=== PATIENT | female | born 1995 | race Caucasian/White ===

== ENCOUNTER → 2020-06-05 | Day surgery (SDC) | payer OTHER ==
[~2020-06-05] VITALS: Ht 162.6 cm; Wt 81.6 kg
[~2020-06-05] MED LIST: NORCO 5-325 TA1 EACH PO; ONDANSETRON ODT4 MG SL; ONDANSETRON ODT8 MG PO; PEPCID AC20 MG PO
[2020-06-05 07:29] LABS: HCG (URINE) SCREEN NEGATIVE (NEGATIVE)
[2020-06-05 07:58] LABS: HCT 39.6 % (37.0-47.0); HGB 13.5 g/dl (12.5-16.0); MCHC 34.1 g/dL (32.0-36.0); RBC 4.5 M/uL (4.20-5.40); RDW 12.5 % (11.5-14.0); WBC 6.9 K/uL (4.0-10.5)
[2020-06-05 08:12] LABS: ALBUMIN 3.7 g/dL (3.4-5.0); BILIRUBIN - TOTAL 0.6 mg/dL (0.2-1.0); BUN/CREAT RATIO (CALC) 13.2 RATIO; CREATININE 0.68 mg/dL (0.51-0.95); GLOBULIN (CALCULATION) 3.6 g/dL; POTASSIUM 3.6 mmol/L (3.5-5.1); TOTAL PROTEIN 7.3 g/dL (6.4-8.2)
== END | disposition home or self-care (01) ==
LOC: FAS 07:10
PROVIDERS: Surgery
DX: K81.1 Chronic cholecystitis (principal); Z20.822 Contact with and (suspected) exposure to COVID-19; Z83.3 Family history of diabetes mellitus; Z82.5 Family history of asthma and other chronic lower respiratory diseases
CPT/HCPCS: 36415; 74300; 80053; 84703; C1758; J1100; J2250; J2405; J2704; J2710; J3010; J7120; Q9967